=== PATIENT | female | born 2000 | race African-American/Black ===

== ENCOUNTER 2020-12-31 23:13 | Emergency (ER) | payer OTHER ==
[~2020-12-31] VITALS: Ht 167.6 cm; Wt 70.0 kg
[2020-12-31 23:13] VITALS: BP 131/68
[2020-12-31] MEDS ORDERED: FLUORESCEIN 1MG EYE STRIP. OS ONE (23:30)
[2020-12-31] MEDS ORDERED: TETRACAINE 0.5% OPHTH SOLUTION 4ML BOTTLE. OU ONE (23:30)
--- NOTE | 2020-12-31 23:42 | PHYS DOC ---
General Adult EDM: Chief Complaint: EYE PROBLEMS HPI: HPI: ". I got alcohol in my eyes... " ".. It was Isopropyl.. 90 %.. I was using the alcohol to take off my glue from my wig... and I got into my Lt eye..." " They told me to flush my eyes.. but I did not want to.. because of my fake eye lashes..." Patient is a 20 year old female who presents with above hx and compaints of getting alcohol in Lt eyes. Pt. was advised to immediately flush eyes for 20 minutes. Pt. however did not follow this advice and instead presented to ED. patient then received 20 minutes of irrigation here. Patient found to have conjunctivitis and superficial chemical burn to left cornea. Mild fluorescein uptake. No limbus injection. No cell or flare appreciated. Visual acuity good. Patient states her tetanus is up-to-date. No recent travel. No specific ill contacts. Has not gotten flu vaccination has not gotten Covid vaccination. Review of Systems: Review of Systems: Constitutional: Denies fever or chills Eyes: Complains of conjunctivitis left eye HENT: Denies nasal congestion or sore throat Respiratory: Denies cough or shortness of breath Cardiovascular: Denies chest pain or edema GI: Denies abdominal pain, nausea, vomiting, bloody stools or diarrhea : Denies dysuria Musculoskeletal: Denies back pain or joint pain Integument: Denies rash Neurologic: Denies headache, focal weakness or sensory changes Endocrine: Denies polyuria or polydipsia Lymphatic: Denies swollen glands Psychiatric: Denies depression or anxiety Family History: Family History: Noncontributory to presentation Current Medications: Current Meds: Current Medications Medications (Trade) Dose Ordered Sig/Aurelio Start Time Stop Time Status Last Admin Dose Admin Fluorescein Sodium (Ful-Alee 1mg) 1 strip 1X ONCE 12/31/20 23:30 12/31/20 23:31 UNV Tetracaine HCl (Tetracaine) 6 drop 1X ONCE 12/31/20 23:30 12/31/20 23:31 UNV Allergies: Allergies: No known drug allergies Physical Exam: PE: Constitutional: Well developed, well nourished, moderate acute distress, non- toxic appearance. [] HENT: Normocephalic, atraumatic, bilateral external ears normal, oropharynx moist, no oral exudates, nose normal. [] Eyes: PERRLA, EOMI, conjunctiva injected left eye., no discharge. [] Neck: Normal range of motion, no tenderness, supple, no stridor. [] Cardiovascular:Heart rate regular rhythm, no murmur [] Lungs & Thorax: Bilateral breath sounds clear to auscultation [] Abdomen: Bowel sounds normal, soft, no tenderness, no masses, no pulsatile masses. [] Skin: Warm, dry, no erythema, no rash. [] Back: No tenderness, no CVA tenderness. [] Extremities: No tenderness, no cyanosis, no clubbing, ROM intact, no edema. [] Neurologic: Alert and oriented X 3, normal motor function, normal sensory function, no focal deficits noted. [] Psychologic: Affect anxious, judgement normal, mood normal. [] EKG: EKG: [] Radiology/Procedures: Radiology/Procedures: [] Heart Score: C/O Chest Pain: N/A Risk Factors: Risk Factors: DM, Current or recent (<one month) smoker, HTN, HLP, family history of CAD, obesity. Risk Scores: Score 0 - 3: 2.5% MACE over next 6 weeks - Discharge Home Score 4 - 6: 20.3% MACE over next 6 weeks - Admit for Clinical Observation Score 7 - 10: 72.7% MACE over next 6 weeks - Early Invasive Strategies Course & Med Decision Making: Course & Med Decision Making Pertinent Labs and Imaging studies reviewed. (See chart for details) Use tylenol and Ibuprofen for pain. Followup with Ophthqlmology. Dr. Amaro- if you have no one to follow with. Use very small amount of erythromycin 4 x day to Lt. eye. Impression: 1. Lt Cornea Chemical Injury 2. Chemical Conjunctivitis. [] Dragon Disclaimer: Dragon Disclaimer: This electronic medical record was generated, in whole or in part, using a voice recognition dictation system. Departure Departure: Referrals: PCP,UNKNOWN (PCP) Dragon Disclaimer This chart was dictated in whole or in part using Voice Recognition software in a busy, high-work load, and often noisy Emergency Department environment. It may contain unintended and wholly unrecognized errors or omissions. Dragon Disclaimer This chart was dictated in whole or in part using Voice Recognition software in a busy, high-work load, and often noisy Emergency Department environment. It may contain unintended and wholly unrecognized errors or omissions. Dragon Disclaimer This chart was dictated in whole or in part using Voice Recognition software in a busy, high-work load, and often noisy Emergency Department environment. It may contain unintended and wholly unrecognized errors or omissions. PRICILLA VILLAR MD Dec 31, 2020 23:42
[2021-01-01] MEDS ORDERED: ERYTHROMYCIN 0.5% OPHTH OINTMENT 1GM TUBE. OS ONE (00:30)
[2021-01-01] MEDS: oxyCODONE/APAP 5/325 1 TAB TABLET PO ONE ×2 (00:30→00:34)
[2021-01-01] MEDS ORDERED: CYCLOPENTOLATE 1% OPTH SOLUTION 2ML BOTTLE. OS ONE (00:30)
[2021-01-01] MEDS ORDERED: KETOROLAC TROMETHAMINE 0.5% OPHTH SOLUTION BOTTLE. OS ONE (00:30)
== END 2021-01-01 01:27 | disposition home or self-care (01) ==
LOC: ER 23:13
DX: H10.212 Acute toxic conjunctivitis, left eye (principal)
CPT/HCPCS: 99284